=== PATIENT | male | born 2000 | race Caucasian/White ===

== ENCOUNTER 2019-06-17 11:50 | Inpatient (IN) | payer OTHER ==
[~2019-06-17] VITALS: Ht 177.8 cm; Wt 69.0 kg
--- NOTE | 2019-06-17 11:54 | NUR ---
PT BIBA FOR ALOC, PER MEDICS PT WAS LAST SEEN NORMAL "LAST NIGHT" BY FAMILY, WHICH WAS REPORTED TO MEDICS BY FAMILY THAT PT WAS DRINKING LAST NIGHT. PER REPORT, UPON ARRIVAL PT WAS "FOAMING AT THE MOUTH", WITH CYANOTIC DAMEON UPPER AND LOWER EXTREMETIES, MEDICATED PER PROTOCOL, PLEASE SEE [facility]. JESSIKA RNS, RTS, AND EMT ARLEY AT BEDSIDE FOR ASSISTANCE, WELL DR BRIDGES FOR MSE. PT PLACED ON FULL CM, SINUS TACH ON MONITOR, PER DR BRIDGES OK TO CONTINUE 1L BOLUS INITIATED BY MEDICS. AGONAL RESPS NOTED, WELL AUDIBLE WHEEZING.
--- NOTE | 2019-06-17 12:08 | NUR ---
XRAY AT BEDSIDE.
--- NOTE | 2019-06-17 12:08 | NUR ---
LAB AT BEDSIDE.
--- NOTE | 2019-06-17 12:10 | NUR ---
PT MEDICATED PER EMAR WITH IVP NARCAN, PT IMMEDIATELY ARROUSE FROM ED GURNEY AND BEGAN TO PULL OFF OXYGEN AND TUBINGS, MULTIPLE ATTEMPTS WERE MADE TO DE-ESCALTE PT, SOFT RESTRAINTS PLACED ON PT, DR BRIDGES AT BEDSIDE AND MADE AWARE.
--- NOTE | 2019-06-17 12:26 | NUR ---
PT REMOVED FROM SOFT RESTRAINTS, VERBALIZED UNDERSTANDING OF REMAINING CALM AND COOPERATIVE.
--- NOTE | 2019-06-17 12:35 | NUR ---
PT TAKEN TO CT, I ACCOMPANIED WHILE PT IS ON FULL CM VIA PORTABLE MONITOR ON 15L.
[2019-06-17 12:38] LABS: microscopic required? YES; urine erythrocyte TRACE (NEGATIVE)
[2019-06-17 12:42] LABS: BASOPHIL % 0.2 % (0-2); PLATELET COUNT 196 x10^3mcL (130-400); RED CELL DISTRIBUTION WIDTH 13.3 % (11.5-14.5)
--- NOTE | 2019-06-17 12:42 | NUR ---
PT RETURNED FROM CT. ON FULL CM, CALM AND COOPERATIVE DURING CT SCAN.
--- NOTE | 2019-06-17 12:54 | NUR ---
PT'S MOTHER AND GIRLFRIEND AT BEDSIDE, STS PT "TOOK XANAX LAST NIGHT, AND WAS ALSO DRINKING,", ALSO STS PRIOR TO CALLING 911, PT'S BROTHER BEGAN "CPR". MOTHER DENIES ANY ILLNESS PRIOR TO TODAY.
[2019-06-17 12:55] LABS: CALCIUM 7.9 mg/dL (8.5-10.1); CARBON DIOXIDE 20.4 mmol/L (21-32); CHLORIDE SERUM 106 mmol/L (98-107); GFR1 45 mL/min; GLUCOSE SERUM 361 mg/dL (74-106); SODIUM SERUM 145 mmol/L (136-145)
[2019-06-17 13:01] LABS: ALKALINE PHOSPHATASE 75 U/L (46-116); ALT/SGPT 26 U/L (16-63); AST/SGOT 28 U/L (15-37); BILIRUBIN TOTAL 0.43 mg/dL (0.20-1.00); CHOLESTEROL 150 mg/dL (<200); TOTAL PROTEIN, SERUM 6.6 g/dL (6.4-8.2)
[2019-06-17 13:02] LABS: ALBUMIN 3.3 g/dL (3.4-5.0)
[2019-06-17 13:17] LABS: AMPHETAMINE QUAL UR NONE DETECTED (See below)
--- NOTE | 2019-06-17 13:17 | NUR ---
PT RETURNED TO SLEEPING, DR BRIDGES MADE AWARE OF PT'S VOMITING.
--- NOTE | 2019-06-17 13:17 | NUR ---
PT BEGAN TO VOMIT "RICE-LIKE CHUNKS" WITH BROWN BILE, APPROX 200CC NOTED IN EMESIS BAG. FAMILY AT BEDSIDE. PT CHANGED AND NEW SHEETS AND BLANKETS PLACED, AAISSTED BY EMT ARLEY. PT TOLERATED WELL, ON FULL CM, IN POSITION OF COMFORT.
--- NOTE | 2019-06-17 13:52 | NUR ---
DR BRIDGES AT BEDSIDE TO DISCUSS POC WITH PT'S FAMILY.
--- NOTE | 2019-06-17 15:16 | NUR ---
PT MEDICATED WITH 0.2 MG IVP ROMAZICON, +CLINICAL RESPONSE NOTED APPROX 30 SECONDS AFTER CARDIAC REHAB NURSE, PT SLOWLY BECAME ARROUSABLE, DR BRIDGES AND PT'S MOTHER AT BEDSIDE.
--- NOTE | 2019-06-17 15:20 | NUR ---
PT TAKEN OFF NONREBREATHER AND PLACED ON 2L NC, PT DID NOT TOLERATE WELL, BEGAN TO DECREASE SAT TO 79%, DR BRIDGES MADE AWARE, PT PLACED BACK ON NONREBREATHER AT 15L.
--- NOTE | 2019-06-17 15:44 | NUR ---
REPORT GIVEN TO LEILA CASTRO TO ASSUME CARE OF PT.
--- NOTE | 2019-06-17 16:10 | NUR ---
RECEIVED PATIENT FROM ED VIA [facility]. PATIENT IS SLEEPING AND AROUSABLE TO VERBAL STIMULI. GARBLED COMPREHENSIBLE SPEECH. ABLE TO FOLLOW COMMANDS. PATIENT ABLE TO TRANSPORT SELF FROM [facility] TO ICU BED. PLACED ON CM READING ST HR 113. RECEIVED PATIENT ON 10L NRB, O2 SAT 86%, PLACED ON 15L NRB AND O2 SAT INCREASED TO 93%. PATIENT DENIES SOB. LS ASSESSED AND CTA TO BUL, DIM TO BLL. IV SITE X2 NOTED TO RIGHT HAND AND LAC, SALINE LOCKED, SITES X2 FLUSHED WITH 10CC NS NO S/S ERYTHEMA AT SITE. PATIENT HAD VOMITING EPISODE X1 OF LIGHT BROWN RICE LIKE EMESIS. PER PATIENT LAST NIGHT HE WAS "DRINKING ALCOHOL, SMOKING WEED AND TOOK 2 XANAX BARS." PATIENT DOES NOT RECALL BEING BROUGHT TO HOSPITAL. ORIENTED TO ROOM. EDUCATED ON PLAN OF CARE. WILL CONTINUE PLAN OF CARE AND CLOSELY MONITOR.
--- NOTE | 2019-06-17 16:15 | NUR ---
BLOOD SUGAR 157.
--- NOTE | 2019-06-17 16:23 | NUR ---
GOT PT'S LAB REPORT LAC ACID 2.5.
--- NOTE | 2019-06-17 16:47 | NUR ---
BLOOD SUGAR 114.
[2019-06-17 16:49] VITALS: BP 100/57
--- NOTE | 2019-06-17 17:02 | NUR ---
RT AT BEDSIDE. PLACED PATIENT ON HIGH FLOW O2 AT 35L 100% FIO2. O2 SAT 99%, PATIENT TOLERATING WELL. DENIES SOB.
[2019-06-17 17:25] VITALS: BP 100/57
--- NOTE | 2019-06-17 17:54 | NUR ---
RT TITRATED FIO2 TO 90%. O2 SAT 100%.
--- NOTE | 2019-06-17 18:34 | NUR ---
BLOOD SUGAR 79. PATIENT PROVIDED WITH 2 CUPS OF OJ.
--- NOTE | 2019-06-17 18:45 | NUR ---
DR PEGUERO AND DR TERAN NOTIFIED OF PATIENTS BLOOD SUGARS AND PATIENTS VOMITING EPISODES X3. ZOFRAN AND DIET TO BE ORDERED. WILL FOLLOW UP.
--- NOTE | 2019-06-17 19:11 | NUR ---
PATIENT CARE ENDORSED TO PLUMBER'S HELPER NURSEKYRA.
[2019-06-17 19:53] VITALS: BP 92/63
--- NOTE | 2019-06-17 20:00 | NUR ---
RECEIVED PT ASLEEP BUT EASILY AROUSABLE.A/O X4.DENIES HEADACHE OR DIZZINESS.+ PERRLA.VERBALLY RESPONSIVE AND CONVERSING WITH FAMILY AT BEDSIDE.BREATHING EASY AND NON-LABORED.ON HIGH FLOW 02 @ 35L/ 90% FIO2,O2 SAT @ 98%.HOB KEPT ELEVATED.DENIES CHESTPAIN AT THIS TIME.BP 92/63 MMHG,HR 74.C/O CHEST SORENESS D/T CPR PERFORMED ROD BUSTER IN ED.NO N/V NOTED AT THIS TIME.ICE CHIPS OFFERED REQUESTED AND TOLERATED WELL.F/C TO YELLOW COLORED URINE.WILL CONTINUE TO MONITOR.
--- NOTE | 2019-06-17 22:05 | NUR ---
TITRATED FIO2 VIA HIGH FLOW DOWN TO 80%. SPO2 STABLE AT 97%. RN NOTIFIED. WILL MONITOR.
--- NOTE | 2019-06-17 23:36 | NUR ---
PT AWAKE ALERT AND CONVERSING WITH FAMILY MEMBERS AT THIS TIME.DENIES HEADACHE OR DIZZINESS.+PERRLA.NO CHANGE IN LOC.BREATHING EASY AND NON-LABORED .ON HIGH FLOW @ 35 L.FIO2 80%.O2 SAT @ 95%.ON AND OFF NON-PRODUCTIVE COUGHING NOTED.DENIES CHESTPAIN.BP 111/75 MMHG,HR 77.F/C EMPTIED 700 ML AT THIS TIME.FAMILY AT BEDSIDE.MULTIPLE VISITORS NOTED.WILL CONTINUE TO MONITOR.
--- NOTE | 2019-06-17 23:50 | NUR ---
TITRATED FIO2 TO 75%. SPO2 STABLE AT 94%. RN NOTIFIED. WILL MONITOR.
[2019-06-18] VITALS (7 sets, daily range): BP systolic 106–116; BP diastolic 51–75; Ht 177.8 cm; Wt 69.0 kg
--- NOTE | 2019-06-18 01:17 | NUR ---
PT VOMITED X1 TO BILE COLORED VOMITUS.GOOD ORAL CARE PROVIDED.FAMILY AT BEDSIDE.HOB KEPT ELEVATED.WILL CONTINUE TO MONITOR.
--- NOTE | 2019-06-18 03:32 | NUR ---
PT SLEEPING SOUNDLY AT THIS TIME WITH MOTHER AT BEDSIDE.EASILY AROUSABLE.BREATHING EASY AND NON-LABORED.ON HIGH FLOW 02 @ 35L/FIO2 @ 75%.O2 SAT @ 99%DENIES CHESTPAIN.BP 106/51 MMHG,HR 76.IN NO DISTRESS.WILL CONTINUE TO MONITOR.
--- NOTE | 2019-06-18 03:40 | NUR ---
FIO2 TITRATED TO 65%. SPO2 STABLE AT 98%. RN NOTIFIED. WILL MONITOR.
[2019-06-18 04:50] LABS: PLATELET COUNT 164 x10^3mcL (130-400); RED CELL DISTRIBUTION WIDTH 13.4 % (11.5-14.5)
--- NOTE | 2019-06-18 04:50 | NUR ---
PT SLEPT WELL ALL NIGHT.ALERT AND ORIENTED.DENIES HEADACHE OR DIZZINESS.BREATHING EASY AND NON-LABORED.HIGH FLOW @ 35L FIO2 65%.NO ASE NOTED FROM ZOSYN IV ATB.VOMITED X1 TO BILE COLORED VOMITUS,ZOFRAN 4 MG IVP GIVEN X1 WITH GOOD RELIEF.ALL NEEDS MET.MORNING CARE RENDERED.IN NO DISTRESS.
[2019-06-18 04:53] LABS: BASOPHIL % 0 % (0-2)
[2019-06-18 05:18] LABS: CALCIUM 8.1 mg/dL (8.5-10.1); CARBON DIOXIDE 24.2 mmol/L (21-32); CHLORIDE SERUM 109 mmol/L (98-107); CREATININE SERUM 1.1 mg/dL (0.7-1.3); GFR1 > 60 mL/min; GLUCOSE SERUM 103 mg/dL (74-106); MAGNESIUM 1.5 mg/dL (1.8-2.4); PHOSPHOROUS 3.6 mg/dL (2.5-4.9); SODIUM SERUM 143 mmol/L (136-145)
--- NOTE | 2019-06-18 05:40 | NUR ---
FIO2 TITRATED TO 55%. SPO2 STABLE AT 97%. RN NOTIFIED. WILL MONITOR.
--- NOTE | 2019-06-18 07:05 | NUR ---
SEEN IN BED AWAKE, ALERT, ORIENTED X4. MOTHER AT BEDSIDE. NO SOB, ON HIGH FLOW O2 35L, FIO2 55%, O2SAT 100% DENIES NAUSEA, KEPT NPO. IVF D5 NS AT 80ML/HR INFUSING WELL TO RT HAND IV SITE. JUSTICE CATH DRANING TO GRAVITY YELLOW URINE IN COLOR. SCD TO BLE INPLACED. PLAN OF CARE DISCUSSED. CALL LIGHT PLACED WITHIN EASY REACH. SIDERAILS UP X2.
--- NOTE | 2019-06-18 09:07 | NUR ---
MG LEVEL 1.5, RIDER INFUSING AT THIS TIME.
--- NOTE | 2019-06-18 11:12 | NUR ---
CREEL HAND MARK, DR. ELLIOTT, DELICATE FABRICS PRESSER AND PRIMARY RN AT BEDSIDE FOR MORNING ROUNDS. PT'S MOTHER AT BEDSIDE AND UPDATED ON PLAN OF CARE. WILL CONT TO MONITOR.
--- NOTE | 2019-06-18 13:24 | NUR ---
CALLED POISON CONTROL AND SPOKE TO
--- NOTE | 2019-06-18 13:30 | NUR ---
BLADDER TRAINING COMPLETED. JUSTICE CATHETER REMOVED. DENIES NAUSEA AFTER REGULAR DIET LUNCH.
--- NOTE | 2019-06-18 13:40 | NUR ---
REPORT GIVEN TO ALBERTO VELASQUEZ, PATIENT WILL BE TRANSFERED TO TELEMETRY UNIT ROOM 252B. PATIENT'S MOTHER MADE AWARE.
--- NOTE | 2019-06-18 14:10 | NUR ---
RECIEVED PT FROM ICU. PT IS AWAKE, ALERT AND ORIENTED AT TIME OF TRANSFER. PT ACCOMPANIED BY NURSE AND FAMILY MEMBER. TELE MONITOR 18 PRESENT SHOWING NSR. PT SATES FEELING NAUSEATED BUT HAS NOT THROWN UP. PT ON HIGH FLOW O2 6L AND IS SATTING AT 98%. BP: 116/57, MAP: 73, HR: 93, TEMP: 100.0. REMOVED PT'S SOCKS AND TURNED ON AC TO CONTROL TEMP AND WILL CONINTUE TO MONITOR TEMP. PT LOOKS TO BE IN NO ACUTE DISTRESS AT THIS TIME. RESPIRATIONS EVEN AND UNLABORED. ORIENTED PT TO ROOM AND UNIT, CALL LIGHT WITHIN REACH. FAMILY MEMBERS AT BEDSIDE. WILL CONITNUE TO MONITOR AND WILL MEDICATE FOR NAUSEA.
--- NOTE | 2019-06-18 14:10 | NUR ---
TRANSFERED VIA BED WITH STABLE CONDITION ACCOMPANIED BY RT AND PATIENT'S MOTHER.
--- NOTE | 2019-06-18 18:30 | NUR ---
RECIEVED CALL FROM [place] ABOUT POSSIBLE TRANSFER FOR PT. ASKED IF RESIDENT CAN CALL [place] TO DISCUSS TRANSFER. GAVE DR. LISA CHAKRABORTY FOR [facility] AT [place]. WILL ENDORSE TO ONCOMING SHIFT.
--- NOTE | 2019-06-18 18:49 | NUR ---
PT IS LAYING DOWN IN BED WITH HOB UP RESTING. PT LOOKS TO BE IN NO ACUTE DISTRESS AT THIS TIME AND DENIES ANY PAIN. RESPIRATIONS EVEN AND UNLABORED ON 6L OXYMIZER. IV SITE X2 PATENT WITH NO SIGNS OF ERYTHEMA OR SWELLING WITH IV FLUIDS INFUSING TO RIGHT HAND. FAMILY MEMBERS AT BEDSIDE. BED IN LOWEST POSITION, CALL LIGHT WITHIN REACH. WILL ENDORSE TO ONCOMING SHIFT.
[2019-06-18] MEDS ORDERED: IPRATROPIUM BROM3 M2 HHN ×2 (19:36→19:37)
[2019-06-18] MEDS ORDERED: ZOS3PM IV (19:36)
--- NOTE | 2019-06-18 20:25 | NUR ---
REPORT GIVEN TO LISETH AT [facility]. PT TO GO TO TELE [id number]. ESTIMATED SCLEROSCOPE TESTER [id number].
--- NOTE | 2019-06-18 22:32 | NUR ---
REPORT AND DC PACKET GIVEN TO [facility]. PT TRANSFERED TO [facility] VIA [facility] IN NO ACUTE DISTRESS. TELE RETURNED TO TALENT SOURCING SPECIALIST.
== END 2019-06-18 22:31 | disposition short-term general hospital (02) | DRG 917 ==
LOC: ED 11:50 → IC 14:06 → DU 06-18 14:21
PROVIDERS: Emergency Medicine; ADMIT General Practice
DX: T42.4X1A Poisoning by benzodiazepines, accidental (unintentional), initial encounter (principal); J69.0 Pneumonitis due to inhalation of food and vomit; J96.01 Acute respiratory failure with hypoxia; G93.41 Metabolic encephalopathy; N39.0 Urinary tract infection, site not specified; F10.10 Alcohol abuse, uncomplicated; Z68.25 Body mass index [BMI] 25.0-25.9, adult; Y92.008 Other place in unspecified non-institutional (private) residence as the place of occurrence of the external cause
CPT/HCPCS: 36600; 82962; 94150; G0378; G0480; J0696; J1815; J2310; J2405; J2543; J3475; J3490; J7030; J7042; J7620; Q0092